=== PATIENT | male | born 1980 | race American Indian/Alaskan Native ===

== ENCOUNTER 2018-03-17 14:19 | Emergency (ER) | payer OTHER ==
[2018-03-17 14:54] VITALS: BP 152/89
[2018-03-17] MEDS ORDERED: MOTRIN PO ONE (16:55)
[2018-03-17] MEDS ORDERED: NORCO 7.5/325 PO ONE (16:55)
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
== END 2018-03-17 18:43 | disposition home or self-care (01) ==
LOC: ED 14:19
DX: M54.5 Low back pain (principal); F17.200 Nicotine dependence, unspecified, uncomplicated; V49.49XA Driver injured in collision with other motor vehicles in traffic accident, initial encounter; Y93.89 Activity, other specified; Y99.8 Other external cause status; Y92.488 Other paved roadways as the place of occurrence of the external cause
CPT/HCPCS: 72040; 72070